=== PATIENT | female | born 1990 | race Caucasian/White ===

== ENCOUNTER 2017-01-13 15:07 | Emergency (ER) | payer SELFPAY ==
--- NOTE | 2017-01-13 15:27 | ERPHSYRPT ---
- History of Present Illness Time Seen by Provider: 01/13/17 15:20 Historian: patient Exam Limitations: no limitations Patient Subjective Stated Complaint: ABD PAIN SINCE YESTERDAY. STATES TOOK HOME TEST 2 DAYS AGO AND WAS POSITIVE. 5TH (3 LIVE, 1 MISCARRIAGE ). C/O ABD PAIN AND RT UPPER QUAD PAIN. DENIES PAIN WITH URIANTION. NORMAL BM. DENIES N/V/D. Triage Nursing Assessment: SEE ABOVE. BS PRESENT. Physician History: Pt. with with one spont. AB. with LMP 12/12/16. Lower crampy abdominal pain , intermittent last less than 1/2 hr. Pain is localizes and nothing improves/ worsens pain. Pt. also with minimal vaginal bleeding. No fever, chills, dizziness, weakness, dysuria, frequency or any other urinary symptoms. , Also with RUQ abdominal pain, sharp, intermittent, localized but not associated with food. Timing/Duration: yesterday Activities at Onset: rest Quality: cramping Abdominal Pain Onset Location: RUQ, suprapubic Pain Radiation: no radiation Severity of Pain-Max: moderate Severity of Pain-Current: mild Modifying Factors: Improves With: nothing Associated Symptoms: No fever/chills, No nausea, No vomiting Allergies/Adverse Reactions: No Known Drug Allergies Allergy (Unverified 01/13/17 15:19) Home Medications: No Home Meds 1 [facility] UD 01/13/17 [History] Hx Tetanus, Diphtheria Vaccination/Date Given: Yes Hx Influenza Vaccination/Date Given: No Hx Pneumococcal Vaccination/Date Given: No Immunizations Up to Date: Yes - Review of Systems Constitutional: No Fever, No Chills Eyes: No Symptoms Ears, Nose, & Throat: No Symptoms Respiratory: No Cough, No Dyspnea Cardiac: No Chest Pain, No Edema, No Syncope Abdominal/Gastrointestinal: Abdominal Pain, No Nausea, No Vomiting, No Diarrhea , No Hematemesis, No Hematochezia Genitourinary Symptoms: Vaginal Bleeding, No Dysuria, No Frequency, No Incontinence, No Urgency, No Vaginal Discharge Musculoskeletal: No Symptoms, No Back Pain, No Neck Pain Skin: No Symptoms, No Rash Neurological: No Symptoms, No Dizziness, No Focal Weakness, No Sensory Changes Psychological: No Symptoms Endocrine: No Symptoms All Other Systems: Reviewed and Negative - Past Medical History Pertinent Past Medical History: Yes Psycho-Social History: Anxiety - Past Surgical History Past Surgical History: Yes Female Surgical History: Section - Social History Smoking Status: Never smoker Exposure to second hand smoke: No Drug Use: none Patient Lives Alone: No - Female History Hx Last Menstrual Period: 12/12/16 - Nursing Vital Signs Nursing Vital Signs: Initial Vital Signs Temperature 99.3 F Temperature Source Oral Pulse Rate 102 Respiratory Rate 18 Blood Pressure [Right Arm] 111/55 Pain Intensity 3 - Physical Exam General Appearance: no apparent distress, alert Eye Exam: PERRL/EOMI, eyes nml inspection Ears, Nose, Throat Exam: normal ENT inspection, pharynx normal, moist mucous membranes Neck Exam: normal inspection, non-tender, supple, full range of motion Respiratory Exam: normal breath sounds, lungs clear, No respiratory distress Cardiovascular Exam: regular rate/rhythm, normal heart sounds Gastrointestinal/Abdomen Exam: soft, normal bowel sounds, tenderness (min at suprapubic area), No distention, No mass, No rebound Pelvic Exam: vaginal discharge (whitish), No adnexal mass, No cervical motion tenderness, No uterine tenderness Rectal Exam: deferred Back Exam: normal inspection, normal range of motion, No CVA tenderness, No vertebral tenderness Extremity Exam: normal inspection, normal range of motion, pelvis stable Neurologic Exam: alert, oriented x 3, cooperative, normal mood/affect, nml cerebellar function, sensation nml, No motor deficits Skin Exam: normal color, warm, dry SpO2 Interpretation: normal SpO2: 97 Oxygen Delivery: Room Air Ordered Tests: Active Orders 24 hr Category Date Time Status Pelvic Exam Assist STAT Care 01/13/17 15:32 Active AMYLASE Stat Lab 01/13/17 15:52 Completed CBC W DIFF Stat Lab 01/13/17 15:52 Completed CMP Stat Lab 01/13/17 15:52 Completed HCG, Quantitative (Inhouse) Stat Lab 01/13/17 15:30 Completed HCG,QUALITATIVE URINE Stat Lab 01/13/17 15:30 Completed LIPASE Stat Lab 01/13/17 15:52 Completed UA W/ MICROSCOPIC Stat Lab 01/13/17 15:30 Completed Wet Prep Stat Lab 01/13/17 16:00 Completed Lab/Rad Data: Laboratory Result Diagrams 01/13/17 15:52 01/13/17 15:52 Laboratory Results 01/13/17 01/13/17 01/13/17 Range/Units 16:00 15:52 15:52 WBC (4.0-10.5) K/mm3 RBC (4.1-5.4) M/mm3 Hgb (12.0-16.0) gm/dl Hct (35-47) % MCV (78-100) fl MCH (26-32) pg MCHC (32-36) g/dl RDW (11.5-14.0) % Plt Count (150-450) K/mm3 MPV (6-9.5) fl Gran % (36.0-66.0) % Lymphocytes % (24.0-44.0) % Monocytes % (0.0-12.0) % Eosinophils % (0.00-5.0) % Basophils % (0.0-0.4) % Basophils # (0-0.4) Sodium (136-145) mEq/L Potassium (3.5-5.1) mEq/L Chloride (98-107) mEq/L Carbon Dioxide (21-32) mEq/L Anion Gap (5-15) MEQ/L BUN (9-20) mg/dL Creatinine (0.55-1.30) mg/dl Estimated GFR ML/MIN Glucose (70-110) MG/DL Calcium (8.5-10.1) mg/dL Total Bilirubin (0.2-1.0) mg/dL AST (15-37) U/L ALT (12-78) U/L Alkaline Phosphatase (46-116) U/L Serum Total Protein (6.4-8.2) gm/dL Albumin (3.4-5.0) g/dL Amylase 48 (25-115) U/L Lipase 122 (73-393) U/L Beta HCG, Quant (0-6) IU/L Ur Collection Type Urine Color (YELLOW) Urine Appearance (CLEAR) Urine pH (5-6) Ur Specific [place] (1.005-1.025) Urine Protein (Negative) Urine Glucose (UA) (NEGATIVE) mg/dL Urine Ketones (NEGATIVE) Urine Nitrite (NEGATIVE) Urine Bilirubin (NEGATIVE) Urine Urobilinogen (0-1) mg/dL Urine WBC (Auto) (NEGATIVE) Urine RBC (Auto) (0-5) Yevgeniy/ul Urine Microscopic RBC (0-2) /HPF Urine Microscopic WBC (0-5) /HPF Ur Epithelial Cells (FEW) /HPF Urine Bacteria (NEGATIVE) /HPF Urine Mucus (NEGATIVE) /HPF Urine HCG, Qual (Negative) WBC (Wet Prep) Moderate RBC (Wet Prep) Rare Epi Cells (Wet Prep) Few Bacteria (Wet Prep) Few Clue Cells (Wet Prep) Few Trichomonas (Wet Prep) None Seen Budding Yeast (Wet Prp) None Seen Chlamydia DNA (PCR) NEGATIVE Urine GC DNA Probe NEGATIVE Specimen Received 01/13/17 01/13/17 01/13/17 Range/Units 15:52 15:52 15:30 WBC 7.1 (4.0-10.5) K/mm3 RBC 4.98 (4.1-5.4) M/mm3 Hgb 12.1 (12.0-16.0) gm/dl Hct 39.4 (35-47) % MCV 79.1 (78-100) fl MCH 24.3 L (26-32) pg MCHC 30.7 L (32-36) g/dl RDW 16.6 H (11.5-14.0) % Plt Count 257 (150-450) K/mm3 MPV 10.3 H (6-9.5) fl Gran % 55.1 (36.0-66.0) % Lymphocytes % 35.8 (24.0-44.0) % Monocytes % 6.5 (0.0-12.0) % Eosinophils % 2.3 (0.00-5.0) % Basophils % 0.3 (0.0-0.4) % Basophils # 0.02 (0-0.4) Sodium 143 (136-145) mEq/L Potassium 4.0 (3.5-5.1) mEq/L Chloride 106 (98-107) mEq/L Carbon Dioxide 30.5 (21-32) mEq/L Anion Gap 10.7 (5-15) MEQ/L BUN 12 (9-20) mg/dL Creatinine 0.80 (0.55-1.30) mg/dl Estimated GFR > 60 ML/MIN Glucose 87 (70-110) MG/DL Calcium 8.9 (8.5-10.1) mg/dL Total Bilirubin 0.5 (0.2-1.0) mg/dL AST 15 (15-37) U/L ALT 14 (12-78) U/L Alkaline Phosphatase 68 (46-116) U/L Serum Total Protein 7.3 (6.4-8.2) gm/dL Albumin 3.5 (3.4-5.0) g/dL Amylase (25-115) U/L Lipase (73-393) U/L Beta HCG, Quant 272 H (0-6) IU/L Ur Collection Type Urine Color (YELLOW) Urine Appearance (CLEAR) Urine pH (5-6) Ur Specific [place] (1.005-1.025) Urine Protein (Negative) Urine Glucose (UA) (NEGATIVE) mg/dL Urine Ketones (NEGATIVE) Urine Nitrite (NEGATIVE) Urine Bilirubin (NEGATIVE) Urine Urobilinogen (0-1) mg/dL Urine WBC (Auto) (NEGATIVE) Urine RBC (Auto) (0-5) Yevgeniy/ul Urine Microscopic RBC (0-2) /HPF Urine Microscopic WBC (0-5) /HPF Ur Epithelial Cells (FEW) /HPF Urine Bacteria (NEGATIVE) /HPF Urine Mucus (NEGATIVE) /HPF Urine HCG, Qual (Negative) WBC (Wet Prep) RBC (Wet Prep) Epi Cells (Wet Prep) Bacteria (Wet Prep) Clue Cells (Wet Prep) Trichomonas (Wet Prep) Budding Yeast (Wet Prp) Chlamydia DNA (PCR) Urine GC DNA Probe Specimen Received 01/13/17 01/13/17 Range/Units 15:30 15:30 WBC (4.0-10.5) K/mm3 RBC (4.1-5.4) M/mm3 Hgb (12.0-16.0) gm/dl Hct (35-47) % MCV (78-100) fl MCH (26-32) pg MCHC (32-36) g/dl RDW (11.5-14.0) % Plt Count (150-450) K/mm3 MPV (6-9.5) fl Gran % (36.0-66.0) % Lymphocytes % (24.0-44.0) % Monocytes % (0.0-12.0) % Eosinophils % (0.00-5.0) % Basophils % (0.0-0.4) % Basophils # (0-0.4) Sodium (136-145) mEq/L Potassium (3.5-5.1) mEq/L Chloride (98-107) mEq/L Carbon Dioxide (21-32) mEq/L Anion Gap (5-15) MEQ/L BUN (9-20) mg/dL Creatinine (0.55-1.30) mg/dl Estimated GFR ML/MIN Glucose (70-110) MG/DL Calcium (8.5-10.1) mg/dL Total Bilirubin (0.2-1.0) mg/dL AST (15-37) U/L ALT (12-78) U/L Alkaline Phosphatase (46-116) U/L Serum Total Protein (6.4-8.2) gm/dL Albumin (3.4-5.0) g/dL Amylase (25-115) U/L Lipase (73-393) U/L Beta HCG, Quant (0-6) IU/L Ur Collection Type VOID Urine Color YELLOW (YELLOW) Urine Appearance CLEAR (CLEAR) Urine pH 7.0 (5-6) Ur Specific [place] 1.020 (1.005-1.025) Urine Protein NEGATIVE (Negative) Urine Glucose (UA) NEGATIVE (NEGATIVE) mg/dL Urine Ketones NEGATIVE (NEGATIVE) Urine Nitrite NEGATIVE (NEGATIVE) Urine Bilirubin NEGATIVE (NEGATIVE) Urine Urobilinogen 0.2 (0-1) mg/dL Urine WBC (Auto) NEGATIVE (NEGATIVE) Urine RBC (Auto) TRACE-INTACT (0-5) Yevgeniy/ul Urine Microscopic RBC 2-5 (0-2) /HPF Urine Microscopic WBC 0-2 (0-5) /HPF Ur Epithelial Cells FEW (FEW) /HPF Urine Bacteria FEW (NEGATIVE) /HPF Urine Mucus MODERATE (NEGATIVE) /HPF Urine HCG, Qual POSITIVE (Negative) WBC (Wet Prep) RBC (Wet Prep) Epi Cells (Wet Prep) Bacteria (Wet Prep) Clue Cells (Wet Prep) Trichomonas (Wet Prep) Budding Yeast (Wet Prp) Chlamydia DNA (PCR) Urine GC DNA Probe Specimen Received 01/13/17 1320 - Progress Progress: improved Progress Note: 01/13/17 17:38 Pt. resting comfortably in no acute distress. Counseled pt/family regarding: lab results, diagnosis - Departure Time of Disposition: 17:38 Departure Disposition: Home Clinical Impression: , Bacterial vaginosis Condition: Stable Critical Care Time: No Referrals: ERICA REYNAGA MD [Primary Care Provider] - Additional Instructions: Call OB MD for pre-pilar care RX: Metronidazole intravag gels Return for worlse, pain, vaginal bleeding or discharge, fever or any problems. Prescriptions: Metronidazole Vag Gel [METROGEL Vag Gel 0.75%] 70 gm VG QAM #5 gel.[email or web address]
[2017-01-13 15:52] LABS: Collection Type VOID
[2017-01-13 15:54] LABS: COMPLETE URINE MICROSCOPIC? YES
[2017-01-13 15:57] LABS: BASOPHIL % 0.3 % (0.0-0.4); Eosinophil % 2.3 % (0.00-5.0); Granulocytes % 55.1 % (36.0-66.0); Lymphocytes % 35.8 % (24.0-44.0); Mean Cell Volume 79.1 fl (78-100); Mean Corpuscular Hemoglobin 24.3 pg (26-32); Mean Platelet Volume 10.3 fl (6-9.5); Monocytes % 6.5 % (0.0-12.0); Platelet Count 257 K/mm3 (150-450); Red Blood Count 4.98 M/mm3 (4.1-5.4); Red Cell Distribution Width 16.6 % (11.5-14.0); White Blood Count 7.1 K/mm3 (4.0-10.5)
[2017-01-13 16:14] LABS: LIPASE 122 U/L (73-393)
[2017-01-13 16:15] LABS: Bacteria FEW /HPF (NEGATIVE); Epithelial Cells FEW /HPF (FEW); Mucus MODERATE /HPF (NEGATIVE); WBC 0-2 /HPF (0-5)
[2017-01-13 16:17] LABS: ALBUMIN 3.5 g/dL (3.4-5.0); ALKALINE PHOSPHATASE 68 U/L (46-116); ANION GAP 10.7 MEQ/L (5-15); BILIRUBIN,TOTAL 0.5 mg/dL (0.2-1.0); BLOOD UREA NITROGEN 12 mg/dL (9-20); CHLORIDE 106 mEq/L (98-107); Carbon Dioxide 30.5 mEq/L (21-32); Glucose 87 MG/DL (70-110); SGOT/AST 15 U/L (15-37); SGPT/ALT 14 U/L (12-78); SODIUM 143 mEq/L (136-145); Total Protein 7.3 gm/dL (6.4-8.2)
[2017-01-13 16:20] LABS: Bacteria Few; Clue Cells Few; Trichomonas None Seen; Yeast None Seen
[2017-01-13 17:35] LABS: CHLAMYDIA URINE NEGATIVE; GC URINE NEGATIVE
[2017-01-13 17:48] VITALS: BP 135/67; PULSE 65; O2SAT 99
== END 2017-01-13 17:55 | disposition home or self-care (01) ==
LOC: ED 15:07
DX: O23.599 Infection of other part of genital tract in pregnancy, unspecified trimester (principal); N76.0 Acute vaginitis; B96.89 Other specified bacterial agents as the cause of diseases classified elsewhere; Z3A.00 Weeks of gestation of pregnancy not specified
CPT/HCPCS: 36415; 80053; 81000; 82150; 83690; 84702; 84703; 85025; 87210; 87491; 87591; 99283